=== PATIENT | female | born 1980 | race Caucasian/White ===

== ENCOUNTER 2018-01-15 16:43 | Inpatient (IN) | payer OTHER ==
--- NOTE | 2018-01-15 17:25 | EDPHY ---
H & P Stated Complaint: uri symptoms wed now with increasing sob pain between shoulder blades hx PE Time Seen by Provider: 01/15/18 17:24 - Personal History LMP (Females 10-55): Over 28 Days Ago Current Tetanus Diphtheria and Acellular Pertussis (TDAP): Yes Tetanus Vaccine Date: < 5 years - Medical/Surgical History Hx Asthma: Yes Hx Chronic Respiratory Disease: No Hx Diabetes: No Hx Cardiac Disease: No Hx Renal Disease: No Hx Cirrhosis: No Hx Alcoholism: No Hx HIV/AIDS: No Hx Splenectomy or Spleen Trauma: No Other PMH: hypothyroid, anxiety, wrist surgery, corneal surgery, wisdom teath removal PE - Social History Smoking Status: Never smoked Constitutional: Initial Vital Signs Temperature (C) 37.1 C 01/15/18 17:03 Heart Rate 113 H 01/15/18 17:03 Respiratory Rate 18 01/15/18 17:03 Blood Pressure 103/82 H 01/15/18 17:03 O2 Sat (%) 89 L 01/15/18 17:03 O2 Delivery Mode Nasal Cannula Allergies/Adverse Reactions: No Known Allergies Allergy (Verified 01/15/18 17:01) Home Medications: Medication Instructions Recorded Albuterol [Proventil Inhaler HFA 1 - 2 puffs IH Q4H PRN 10/27/15 (*)] Budesonide/Formoterol 160/4.5 1 puffs IH DAILY 10/27/15 [Symbicort 160-4.5 Mcg Inh (*)] Levothyroxine [Synthroid 137 mcg 137 mcg PO DAILY06 10/27/15 (*)] Montelukast Sodium [Singulair 10 10 mg PO DAILY 10/27/15 mg (*)] Sertraline HCl [Zoloft 100mg (*)] 300 mg PO DAILY 10/27/15 Medical Decision Making - Diagnostics Imaging Results: Imaging Impressions Chest/Thorax CTA 01/15/18 17:34 Impression: 1. Negative CT examination of the chest for acute pulmonary thromboembolic disease. 2. Central bronchitis with patchy infiltrate right lower lobe, possible early pneumonia. Results called to Dr. Cazares at 6:30 PM. Imaging: Discussed imaging studies w/ callisthenics instructor Radiologist, I viewed and interpreted images myself ED Course/Re-evaluation: CHIEF COMPLAINT: Dyspnea, cough HISTORY OF PRESENT ILLNESS: The patient is a 37 y/o female with a history of bilateral PEs who arrives with her complaining of progressive dyspnea and cough today. She first noticed general malaise on Thursday, 2 days ago. Today, "I woke up with extremely short breath. I couldn't catch it. And I was coughing really bad, which I didn't have with my prior PE." Her cough subsided throughout the day, but her dyspnea continued and worsened. She then developed pain between her scapulas which is worse when lying down. She has no known clotting disorder despite prior work ups for this. She was on contraceptives during her first PEs, but there was no other obvious provocation for them. She was on Lovenox during her recent . She is breast feeding currently. No recent travel or surgery. REVIEW OF SYSTEMS: A comprehensive 10 system review of systems is otherwise negative aside from elements mentioned in the history of present illness and medical decision making. PHYSICAL EXAM: HR, BP, O2 Sat, RR. Temp noted General Appearance: Alert, well hydrated, appropriate, and non-toxic appearing. Head: Atraumatic without scalp tenderness or obvious injury Eyes: Pupils equal, round, reactive to light and accommodation, EOMI, no trauma , no injection. Nose: Atraumatic, no rhinorrhea, clear. Throat: Mucus membranes moist. Neck: Supple, nontender, no lymphadenopathy. Respiratory: No retractions, no distress, and no accessory muscle use. Lungs have bilateral expiratory wheezing to auscultation bilaterally. Cardiovascular: Regular rate and rhythm, no murmurs, rubs, or gallops. Good capillary refill all extremities. Gastrointestinal: Abdomen is soft, nontender, non-distended, no masses, no rebound, no guarding, no peritoneal signs. Musculoskeletal: Normal active ROM of all extremities, atraumatic. Neurological: Alert, appropriate, and interactive. The patient has non-focal cranial nerves, motor, sensory, and cerebellar exam. Skin: No rashes, good turgor, no nodules on palpation. Past medical history: hypothyroid, anxiety, wrist surgery, corneal surgery, bilateral PEs, exercise-induced asthma. Past surgical history: Wrist surgery, corneal surgery, wisdom tooth extraction Family history: Noncontributory Social history: and at bedside. Lives in [place]. Employed at . DIAGNOSTICS/PROCEDURES/CRITICAL CARE TIME: Chest CTA: no PE, bronchitis, possible early RLL pneumonia. DIFFERENTIAL DIAGNOSIS: The differential diagnosis for the patient's shortness of breath and hypoxemia included but was not limited to pneumonia, myocardial infarction, acute mountain sickness, high altitude pulmonary edema, congestive heart failure, and pulmonary embolus. MEDICAL DECISION MAKING: This is a 37 y/o female with a history of unprovoked bilateral PEs 2 years ago who presents with progressive dyspnea, cough, and back pain. On exam, she is tachycardic, tachypneic, and hypoxemic at 89%. She has expiratory wheezing bilaterally on auscultation. Due to high pretest probability for another PE, I recommended proceeding directly with a chest CTA, which she agrees to. Plan for IV, ISTAT, chest CTA, and duo neb. 1830: Reevaluated patient and discussed findings. CT is negative for PE, but does show mucus plugging and possible early RLL pneumonia. 1gm IV Ceftriaxone and 500mg IV Azithromycin ordered. Will trial off oxygen and observe to determine if she is safe for discharge home. 2L IV NS ordered. Patient has continued to be tachycardic in the 130s and hypoxemic in the high 80s when not on oxygen. I've recommended admission for this, which she agrees to. Spoke with hospitalist service. Dr. Meyers accepts admission. - Data Points Laboratory Results: 01/15/18 17:55 POC Hgb 14.3 gm/dL gm/dL (12.6-16.3) POC Hct 42 % % (38-47) POC Sodium 144 mEq/L mEq/L (135-145) POC Potassium 3.6 mEq/L mEq/L (3.3-5.0) POC Chloride 105 mEq/L mEq/L (97-110) POC BUN 16 mg/dL mg/dL (7-23) POC Creatinine 0.8 mg/dL mg/dL (0.6-1.0) POC Glucose 98 mg/dL mg/dL (70-100) Medications Given: Discontinued Medications Albuterol/Ipratropium (Duoneb) 3 ml IH EDNOW ONE Stop: 01/15/18 17:35 Last Admin: 01/15/18 17:44 Dose: 3 ml Azithromycin 500 mg/ Sodium (Chloride) 255 mls @ 255 mls/hr IV EDNOW ONE PRN Reason: Protocol Stop: 01/15/18 19:32 Last Admin: 01/15/18 19:45 Dose: 255 mls Ceftriaxone Sodium/Dextrose (Rocephin 1 Gm (Premix)) 50 mls @ 100 mls/hr IV EDNOW ONE PRN Reason: Protocol Stop: 01/15/18 19:02 Last Admin: 01/15/18 18:55 Dose: 50 mls Point of Care Test Results: Chemistry 01/15/18 17:55 POC Sodium 144 mEq/L mEq/L (135-145) POC Potassium 3.6 mEq/L mEq/L (3.3-5.0) POC Chloride 105 mEq/L mEq/L (97-110) POC BUN 16 mg/dL mg/dL (7-23) POC Creatinine 0.8 mg/dL mg/dL (0.6-1.0) POC Glucose 98 mg/dL mg/dL (70-100) ISTAT H&H 01/15/18 17:55 POC Hgb 14.3 gm/dL gm/dL (12.6-16.3) POC Hct 42 % % (38-47) Departure - Departure Disposition: [facility] Inpatient Acute Clinical Impression: Hypoxemia Pneumonia Qualifiers: Pneumonia type: due to unspecified organism Laterality: right Lung location: lower lobe of lung Qualified Code(s): J18.1 - Lobar pneumonia, unspecified organism Condition: Fair Report Scribed for: Daryl Cazares Report Scribed by: Mikayla Clemens Date of Report: 01/15/18 Time of Report: 18:33
[2018-01-15] MEDS ORDERED: IPRATROPIUM/ALBUTEROL 3 ML DEYVIAL IH ONE (17:34)
[2018-01-15] MEDS ORDERED: IOPAMIDOL (ISOVUE 370) 100 ML BTL IV ONE (18:03)
[2018-01-15] MEDS ORDERED: AZITHROMYCIN IV 500 MG in NS 250 ML IV ONE (18:33)
[2018-01-15] MEDS ORDERED: NS 1,000 ML IV ONE ×2 (20:06)
[2018-01-15 20:21] LABS: INR 0.98 (0.83-1.16); PROTIME(PATIENT) 13.2 SEC (12.0-15.0)
[2018-01-15] MEDS ORDERED: ACETAMINOPHEN 325 MG TAB PO PRN (21:00)
[2018-01-15] MEDS ORDERED: NS 1,000 ML IV SCH (21:00)
[2018-01-15] MEDS ORDERED: PROMETHAZINE HCL 25 MG/ML INJ IVP PRN (21:00)
[2018-01-15] MEDS: IPRATROPIUM/ALBUTEROL 3 ML DEYVIAL IH SCH (21:32)
[2018-01-16] MEDS ORDERED: BENZONATATE 100 MG CAP PO PRN (02:14)
--- NOTE | 2018-01-16 03:27 | GHP ---
DATE OF ADMISSION: 01/15/2018 CHIEF COMPLAINT: Cough and fatigue. HISTORY OF PRESENT ILLNESS: The patient is a pleasant 37-year-old female with a past medical history of hypothyroidism who also had a history of a pulmonary embolism in the past, which was unprovoked. She presented to the [facility] Emergency Room with complaints of increasing shortne ss of breath and pain between her shoulder blades. Her pulmonary embolism was diagnosed approximatel y 2 to 3 years ago and was considered unprovoked. She completed 6 months of anticoagulation and stop ped. She was over the past year and was on Lovenox injections throughout her but she has been off Lovenox now for several months. She had a CT scan of her chest, which did not show any evidence of a pulmonary embolism. It did, however, show central bronchitis with patchy infiltrat e of the right lower lobe, possibly early pneumonia. Patient was started on ceftriaxone and azithrom ycin as well as scheduled nebulizers. Unfortunately, she was not able to wean entirely off oxygen an d remained rather tachycardic with a heart rate in the 120s; so it was decided to admit her for furth er evaluation. PAST MEDICAL HISTORY: History of pulmonary embolism, unprovoked; hypothyroidism; asthma, not current ly on any inhalers daily. PAST SURGICAL HISTORY: None. HOME MEDICATIONS: Sertraline 300 mg daily, levothyroxine 137 mcg daily. ALLERGIES: No known drug allergies. FAMILY HISTORY: No family history of pulmonary embolism. SOCIAL HISTORY: Patient is currently . She has 1 child. She is a nonsmoker. REVIEW OF SYSTEMS: 10-point review of systems was obtained and negative other than stated in the HPI . PHYSICAL EXAMINATION: VITAL SIGNS: Temperature 37.1, blood pressure 98/71, heart rate 129, respirat ions 24, satting 88% on room air. GENERAL: Patient appears comfortable, nontoxic, awake, alert, con versant. No acute distress. HEENT: Extraocular movements intact. No scleral icterus. NECK: Supp le. No thyroid enlargement noted. CHEST: Mild right-sided lung crackles but no significant wheezin g. Normal respiratory effort. HEART: Tachycardic, regular. No murmurs noted. ABDOMEN: Soft, non tender, nondistended. : No Peter catheter in place. EXTREMITIES: No significant edema or calf p ain with palpation. NEUROLOGIC: Cranial nerves 2-12 appear grossly intact with 5/5 strength. LABORATORY DATA: Hemoglobin 14. Sodium 144, potassium 3.6, chloride 105, bicarb 16, BUN 0.8, glucos e 98. ASSESSMENT AND PLAN: Acute hypoxic respiratory failure. This appears secondary to underlying pneumo neelam. Continue scheduled nebulizers, antibiotic therapy and wean oxygen as able. Pneumonia, community acquired. Continue current ceftriaxone and azithromycin. History of pulmonary embolism, unprovoked. No evidence of recurrence on CT imaging. Hypothyroidism. Continue current dosing of levothyroxine at 137 mcg daily. Anxiety and depression. Continue current sertraline dosing. DISPOSITION: We will admit under observation status. /[id number]/MODL
[2018-01-16 04:40] LABS: PLATELET COUNT 115 10^3/uL (150-400)
[2018-01-16] MEDS ORDERED: LEVOTHYROXINE 137 MCG TAB PO SCH (06:00)
[2018-01-16] MEDS: IPRATROPIUM/ALBUTEROL 3 ML DEYVIAL IH SCH ×4 (06:34→22:08)
[2018-01-16] MEDS: guaiFENesin 600 MG TAB.ER PO PRN (08:28)
[2018-01-16] MEDS ORDERED: ENOXAPARIN 40 MG/0.4 ML SYR SC SCH (09:00)
--- NOTE | 2018-01-16 12:06 | HOSPPROG ---
Hospitalist Progress Note Assessment/Plan: AHRF 2/2 viral URI - failed RA challenge, desats to mid-80s -cont supportive care with anti-tussives, expectorant, nebs -wean O2 as able -doubt bacterial pna, will send pct and if low risk, stop atbx H/O PE - CTA neg Anxiety / depression - stable, cont zoloft - reviewed meds myself and with pharmacy, none contraindicated Full code Dispo - change to inpt for ongoing hypoxemia Subjective: Pt feels a bit better, though notes up coughing a lot during the night. No fevers/chills. No CP or SOB. She is currently. Objective: Vital Signs Temp Pulse Resp BP Pulse Ox 37.2 C 95 14 102/65 98 01/16/18 08:06 01/16/18 08:06 01/16/18 08:38 01/16/18 08:06 01/16/18 08:38 Microbiology 01/15/18 22:42 Respiratory Panel (PCR) - Final Nasal, Sinus - Swab Human Rhinovirus/Enterovirus Laboratory Results 01/16/18 03:40 01/16/18 03:40 01/15/18 01/16/18 01/17/18 05:59 05:59 05:59 Intake Total 2550 Balance 2550 PT 13.2 SEC (12.0-15.0) 01/15/18 17:40 INR 0.98 (0.83-1.16) 01/15/18 17:40 - Physical Exam Constitutional: no apparent distress Eyes: PERRL Ears, Nose, Mouth, Throat: moist mucous membranes Cardiovascular: regular rate and rhythym Respiratory: no respiratory distress, other (good air exchange, faint expiratory wheeze) Gastrointestinal: normoactive bowel sounds, soft, non-tender abdomen Skin: warm Musculoskeletal: full muscle strength Neurologic: AAOx3 Psychiatric: interacting appropriately ICD10 Worksheet Patient Problems: Problems Problem Status Onset Hypoxemia Acute Pneumonia Acute Elevated d-dimer Acute Pleuritic chest pain Acute Pulmonary embolism Acute
--- NOTE | 2018-01-16 12:10 | ASMTCMCOM ---
CM Note CM Note Notes: Pt has been admitted with SOB, cough, fatigue, tachycardia, possible early PNA. She has a hx of anxiety, depression, pulmonary embolism and asthma. She is currently on IV ABX, O2 and nebulizer treatments. She is and lives here in [place]. CM will follow for any d/c needs. Date Signed: 01/16/2018 12:10 PM Electronically Signed By:LORIN Jensen
[2018-01-16] MEDS: SERTRALINE HCL 100 MG TAB PO SCH (12:58)
--- NOTE | 2018-01-16 14:23 | PDMN ---
Medical Necessity Medical necessity: Change to inpt as 01/16/18 @ 1206. Pt meets inpt criteria per MD order and MCG M-282, Pneumonia, Community Acquired. 37 y/o admitted w/ pneumonia upgraded to inpt for ongoing hypoxemia (desats to mid 80's on RA) requiring supplemental O2, IVABX's. Pt w/hx pulm embolism and asthma. Est LOS> 2MN for management of above.
[2018-01-16] MEDS ORDERED: AZITHROMYCIN IV 500 MG in NS 250 ML IV SCH (20:00)
[2018-01-16] MEDS ORDERED: LEVOTHYROXINE 150 MCG TAB PO SCH (21:00)
[2018-01-17] MEDS: guaiFENesin 600 MG TAB.ER PO PRN (05:07)
[2018-01-17] MEDS: IPRATROPIUM/ALBUTEROL 3 ML DEYVIAL IH SCH ×2 (05:17→10:10)
[2018-01-17 07:21] VITALS: BP 106/64
[2018-01-17] MEDS: SERTRALINE HCL 100 MG TAB PO SCH (09:09)
--- NOTE | 2018-01-17 13:05 | ASMTLACE ---
JETTE Length of stay for Answers: Less than 1 day current admission Acuity / Level of Answers: Yes Care: Did the patient have an inpatient admission? Comorbidities - select Answers: Other Notes: hx pulmonary all that apply embolism, asthma, hypot hyr oid # of Emergency department Answers: 1-2 visits in the last 6 months Social determinants Answers: Mental health diagnosis (anxiety, depression, pers onality disorders, etc.) Score: 8 Date Signed: 01/17/2018 01:04 PM Electronically Signed By:Le Rich RN
--- NOTE | 2018-01-17 13:09 | ASDISCHSUM ---
Discharge Information Plan Status:Home with No Needs Medically Cleared to Leave:01/16/2018 Discharge Date:01/17/2018 11:12 AM CM D/C Disposition:Home, Routine, Self-Care ADT D/C Disposition:Home, Routine, Self-Care Projected Discharge Date:01/17/2018 11:12 AM Transportation at D/C:Family Discharge Delay Reason: Follow-Up Date:01/17/2018 11:12 AM Discharge Slot:1 - 8:01 am - 12:00 noon Final Diagnosis:Cough, fatigue, viral UTI, hypoxemia, tachycardia, hx of hypothyroid, PE, anxiety, d epression Placement Information Patient Contact Information Contact Name:CODI Relationship: Address:[address] City:[place] Alternate Phone: [facility]/Zip Code:[place] [address] Email: Financial Information Financial Class:BCOP Primary Plan Desc:[facility] Primary Plan Number:[id number] Secondary Plan Desc: Secondary Plan Number: Assessment Information LACE LACE Length of stay for Answers: Less than 1 day current admission Acuity / Level of Answers: Yes Care: Did the patient have an inpatient admission? Comorbidities - select Answers: Other Notes: hx pulmonary all that apply embolism, asthma, hypot hyr oid # of Emergency department Answers: 1-2 visits in the last 6 months Social determinants Answers: Mental health diagnosis (anxiety, depression, pers onality disorders, etc.) Score: 8 Date Signed: 01/17/2018 01:04 PM Electronically Signed By:Le Rich RN [facility] CM Progress Note CM Note CM Note Notes: Pt has been admitted with SOB, cough, fatigue, tachycardia, possible early PNA. She has a hx of anxiety, depression, pulmonary embolism and asthma. She is currently on IV ABX, O2 and nebulizer treatments. She is and lives here in [place]. CM will follow for any d/c needs. Date Signed: 01/16/2018 12:10 PM Electronically Signed By:LORIN Jensen Case Management Discharge Plan Note Case Management Discharge Discharge Order Complete? Answers: Yes Patient to Obtain Answers: Independently Medications Transportation Arranged Answers: Family/Friends EMTALA Complete Answers: No Notes: N/A Case Management Transport Answers: No Notes: N/A Form Complete Faxed Final Orders Answers: No Notes: N/A Agency/Facility Transfer Answers: No Notes: N/A Report Printed & Faxed to Receiving Agency Family Notified Answers: Yes Notes: at bedside Discharge Comments Notes: Reviewed chart regarding discharge plan of care, pt's progress. Pt to discharge home independently with family support and no identified needs. No IM/MARTINO forms signed, not applicable. Pt to follow up as directed. CM available for any further issues or concerns. Discharge Plan: Home independently Date Signed: 01/17/2018 01:09 PM Electronically Signed By:Le Rich RN Intervention Information
--- NOTE | 2018-01-17 15:52 | GDS ---
DISCHARGE DIAGNOSES: 1. Acute hypoxemic respiratory failure secondary to a viral bronchitis. 2. Viral bronchitis secondary to a rhinovirus, enterovirus. 3. History of pulmonary embolism. Computerized tomography pulmonary angiogram is negative for pulmo nary embolism. 4. Anxiety/depression. 5. . HISTORY: For details please see history and physical dated January 16, 2018. In brief, the patient is a 37-year-old female with a history of previous pulmonary embolism who presents to the emergency department with cough and fatigue. Some consideration was given to pneumonia. She was given ceftria xone and azithromycin. Was admitted to the hospital for further management. HOSPITAL COURSE: Patient admitted to the cardiac telemetry unit. CT pulmonary angiogram was negativ e for PE. A central bronchitis pattern is noted with a possible patchy infiltrate in the right lower lobe. Her procalcitonin was low risk at 0.1. She remained afebrile throughout the hospitalization. She had a normal white blood cell count. Her antibiotics were discontinued given this is likely a viral process and these IV antibiotics are excreted into the breast milk, putting the at risk for GI distress. She was treated with supportive care including Mucinex, Tessalon Perles, and nebuli zers. She already has an albuterol inhaler, which she can continue at discharge. She was weaned off oxygen and is satting 94% on room air on the day of discharge. DISPOSITION: Patient is discharged home in stable condition. FOLLOWUP: Stephania Ochoa MD, primary care. DISCHARGE MEDICATIONS: Please see [place] for completed outpatient medication list. New medications on discharge include: Tylenol 650 mg p.o. q.4 hours p.r.n., Mucinex 600 mg p.o. b.i. d. p.r.n., #60, no refills. She will continue all other outpatient medications as previously prescri bed, including albuterol 1-2 puffs inhaled q.4 hours p.r.n., Zoloft 200 mg p.o. daily, levothyroxine 150 mcg p.o. q.h.s., and vitamin. /[id number]/MODL
== END 2018-01-17 11:12 | disposition home or self-care (01) | DRG 189 ==
LOC: F2W 01-16 01:04 → OBSVTOIN 01-16 12:06 → F3E 01-16 13:34
PROVIDERS: ADMIT Internal Medicine; ATTEND Hospitalist
DX: J96.01 Acute respiratory failure with hypoxia (principal); J20.6 Acute bronchitis due to rhinovirus; J20.8 Acute bronchitis due to other specified organisms; R00.0 Tachycardia, unspecified; E86.9 Volume depletion, unspecified; F41.9 Anxiety disorder, unspecified; F32.9 Major depressive disorder, single episode, unspecified; E03.9 Hypothyroidism, unspecified; Z86.711 Personal history of pulmonary embolism
CPT/HCPCS: 82435-PO; 82565-PO; 82947-PO; 84132-PO; 84295-PO; 84520-PO; 85014-PO; 96365; G0378; J0456; J0696; J1650; Q9967